=== PATIENT | male | born 1960 | race Caucasian/White ===

== ENCOUNTER 2021-02-04 10:38 | Outpatient (RCR) | payer OTHER, SELFPAY ==
--- NOTE | 2021-02-04 13:28 | PTOPEVAL ---
Thank you for referring Vin Senior to [facility].? The patient is scheduled to be seen for therapy? ____x/week for ___ weeks. Please review, sign, date and return this plan of care BILLY. I agree with and certify that the following plan of care is medically necessary. Referring Physician Date Admitting Provider: Attending Provider: Gerald Winters, MD Referring Provider: *PT Outpatient Evaluation Start: 02/04/21 10:51 Freq: Status: Active Protocol: Document 02/04/21 11:00 [facility] (Rec: 02/04/21 12:32 [facility] [id number]) Therapy Assessment Status Assessment Status Assessment Status Evaluation Evaluation Information Problem Diagnosis cervical and lumbar stenosis, R shoulder tendonitis/ arthritis Onset 01/31/21 Additional Evaluation Detail Neck Disabilty index 74% Back Index 68% Subjective Information Vin Senior is a 60 year old Query Text:As Reported By Patient/ male who [facility] with cervical and R shoulder pain, and LBP. He slipped and fell in [place] on a slippery substance on the floor January 25 or causing the increase in neck, back, and R shoulder pain. He reports that he fell and landed on his left glute. 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 [facility] did pelvic x- ray, [facility] did neck, R shoulder, LBP. Reports feeling really good prior to fall. No pain meds, medical marijuana. Lives at home with and daughter. 3 steps going into house, 10 stairs down to the basement. Has spent the weeks following the injury primarily sitting. Wants to return to mowing the lawn and walking. Prior Level of Function Comments Additional Prior Level of Function Not working due to disability. Comments Return to taking walks. Difficulty reaching behind head and reaching behind back. Used to mow lawn prior to injury. Pain Assessment Timing of Pain Assessment
--- NOTE | 2021-04-05 15:52 | PTOPEVAL ---
Thank you for referring Vin Senior to [facility].? The patient is scheduled to be seen for therapy? ____x/week for ___ weeks. Please review, sign, date and return this plan of care BILLY. I agree with and certify that the following plan of care is medically necessary. Referring Physician Date Admitting Provider: Attending Provider: Gerald Winters, Referring Provider: *PT Outpatient Evaluation Start: 02/04/21 10:51 Freq: Status: Active Protocol: Document 04/05/21 15:02 [facility] (Rec: 04/05/21 15:50 [facility] [id number]) Therapy Assessment Status Assessment Status Assessment Status Discharge Evaluation Information Problem Diagnosis cervical and lumbar stenosis, R shoulder tendonitis/ arthritis Onset 01/31/21 Subjective Information Patient states that he needs a Query Text:As Reported By Patient/ little break from therapy at Family this time. He states that he feels therapy has helped quite a bit and his hip doesn't hurt anymore. Patient states he is mowing part of the lawn, but is not walking as much. Pain Assessment Timing of Pain Assessment Timing of Pain Assessment Assessment Pain Scale Pain Scale Used Numeric (1 - 10) Self Report Pain Assessment Right Shoulder(s) Reported Pain Level 3 Neck Reported Pain Level 3 Lower Back Reported Pain Level 3 Pain Score Pain Score 3,3,3: Self Report Interventions Used Interventions Used By Clinicians Activity or ADL's,Electrical Stimulation,Exercise,Heat Cervical and Lumbar ROM Cervical ROM Cervical Flexion (0-60) 15 Query Text:Active in Degrees Cervical Extension (0-70) 35 Query Text:Active in Degrees Cervical Extension (0-70) 20 Query Text:Passive in Degrees Cervical Lateral Flexion Right (0-50) 20 Query Text:Passive in Degrees Cervical Rotation Right (0-90) 30 Query Text:Active in Degrees Cervical Rotation Left (0-90) 35 Query Text:Active in Degrees Lumbar ROM Lumbar ROM 50% of Normal Upper Extremity Range of Motion Scapular/ Shoulder Range of Motion Right Shoulder Flexion - Active 140 Lower Extremity Muscle Strength Testing Hip Strength Bilateral Hip Flexion Strength 4+ Good + Hip Extension Strength 4 Good Hip Abduction Strength 4 Good Knee Strength Bilateral Knee Flexion Strength 5 Normal Knee Extension Strength 5 Normal Ankle Strength Bilateral Reason No
== END 2021-04-05 16:30 | disposition home or self-care (01) ==
LOC: CHSPT 10:38
PROVIDERS: Visit Provider Internal Medicine
DX: M54.2 Cervicalgia (principal); M25.511 Pain in right shoulder; M54.40 Lumbago with sciatica, unspecified side
CPT/HCPCS: 97014; 97110; 97140; 97161; G0283